=== PATIENT | female | born 1980 | race Hispanic/Latino ===

== ENCOUNTER 2019-04-11 08:56 | Emergency (ER) | payer SELFPAY ==
[2019-04-11] MEDS ORDERED: cloNIDine 0.1 MG TAB ONE (09:26)
[2019-04-11 10:05] LABS: Anion Gap 17 mmol/L (10-20); BUN (Urea Nitrogen) 9 mg/dL (7.0-18.7); Calc. Creatinine Clearance 0 mL/min (70-130); Calcium 10.4 mg/dL (7.8-10.44); Carbon Dioxide 26 mmol/L (22-29); Chloride 104 mmol/L (98-107); Estimated GFR-MDRD 65; Glucose 138 mg/dL (70-105); Potassium 4.5 mmol/L (3.5-5.1); Sodium 142 mmol/L (136-145)
[2019-04-11] MEDS ORDERED: Acetaminophen 500 MG TAB ONE (10:17)
== END 2019-04-11 10:56 | disposition home or self-care (01) ==
LOC: NAV ERS 08:56
DX: F43.9 Reaction to severe stress, unspecified (principal); I10 Essential (primary) hypertension; E11.9 Type 2 diabetes mellitus without complications; Z79.4 Long term (current) use of insulin
CPT/HCPCS: 36416; 80048; 93005

== ENCOUNTER 2021-12-15 01:34 | Emergency (ER) | payer SELFPAY ==
[2021-12-15 01:54] LABS: Bilirubin Negative (Negative); Blood, Urine Large (Negative); Clarity Cloudy (Clear); Glucose, Urine (Dipstick) Negative (Negative); Ketone, Urine Negative (Negative); Leukocyte Moderate (Negative); Nitrite Negative (Negative); Protein, Urine (Dipstick) 100 mg/dL (Neg-Trace); Specific Gravity, Urine 1.025 (1.005-1.030); pH, Urine 6.5 (5.0-9.0)
[2021-12-15 01:58] LABS: Bacteria/HPF 2+ HPF (None Seen); RBC/HPF 21-50 HPF (0-3); WBC/HPF Greater Than 50 HPF (0-3)
[2021-12-15] MEDS ORDERED: Phenazopyridine HCl 97.5 MG TABLET ONE (02:20)
[2021-12-15] MEDS ORDERED: Cephalexin 250 MG CAP ONE (02:20)
[2021-12-15] MEDS ORDERED: Naproxen 500 MG TAB ONE (02:20)
[2021-12-15] MEDS ORDERED: Mag-Al Plus 1200 MG/1200 MG/120 MG/30 ML UDCUP ONE (02:28)
== END 2021-12-15 12:40 | disposition home or self-care (01) ==
LOC: NAV ERS 01:34
DX: N39.0 Urinary tract infection, site not specified (principal); R31.9 Hematuria, unspecified; I10 Essential (primary) hypertension; E11.9 Type 2 diabetes mellitus without complications; Z79.4 Long term (current) use of insulin; Z79.899 Other long term (current) drug therapy
CPT/HCPCS: 81003; 81015; 87077; 87086; 87186; 99283